=== PATIENT | male | born 1965 | race Caucasian/White ===

== ENCOUNTER 2020-08-01 07:06 | Emergency (ER) | payer SELFPAY ==
[~2020-08-01] VITALS: Ht 170.2 cm; Wt 79.4 kg
[2020-08-01] MEDS ORDERED: ETOMIDATE (2MG/ML) 20ML VIAL IV ONE (08:15)
[2020-08-01 09:47] VITALS: BP 120/80
== END 2020-08-01 10:09 | disposition home or self-care (01) ==
LOC: ER 07:06
DX: S43.004A Unspecified dislocation of right shoulder joint, initial encounter (principal); X58.XXXA Exposure to other specified factors, initial encounter; Y93.89 Activity, other specified; Y92.89 Other specified places as the place of occurrence of the external cause; Y99.8 Other external cause status
CPT/HCPCS: 23650; 73030; 99152

== ENCOUNTER 2020-09-04 20:27 | Emergency (ER) | payer MEDICAID, OTHER ==
[~2020-09-04] VITALS: Ht 170.2 cm; Wt 74.8 kg
[2020-09-04] MEDS ORDERED: fentaNYL CITRATE 100 MCG/2 ML VL IV ONE (21:00)
[2020-09-04] MEDS ORDERED: ONDANSETRON HCL 4 MG/2 ML VIAL IV ONE (21:00)
[2020-09-04] MEDS ORDERED: MORPHINE SULFATE 4 MG/ML SYR/VIAL IV ONE (21:00)
[2020-09-04] MEDS ORDERED: MIDAZOLAM HCL 5 MG/ML-1ML VIAL IV ONE (21:00)
[2020-09-05 03:00] VITALS: BP 101/68
== END 2020-09-05 03:07 | disposition home or self-care (01) ==
LOC: ER 20:28
DX: M24.411 Recurrent dislocation, right shoulder (principal)
CPT/HCPCS: 23650; 73020; 96374; 96375; 99152; 99153; 99285; J2250; J2270; J2405; J3010